=== PATIENT | female | born 1970 | race Caucasian/White ===

== ENCOUNTER 2017-08-14 05:51 | Day surgery (SDC) | payer OTHER ==
[2017-08-14] MEDS ORDERED: MIDAZOLAM 1 MG/ML 2 ML INJ ×3 (08:07)
[2017-08-14] MEDS ORDERED: FENTAnyl 50 MCG/ML VIAL (08:07)
== END 2017-08-14 12:10 | disposition home or self-care (01) ==
LOC: GIL 05:51
DX: K51.90 Ulcerative colitis, unspecified, without complications (principal); K29.70 Gastritis, unspecified, without bleeding; K64.8 Other hemorrhoids
CPT/HCPCS: 43239; 88305; 88312